=== PATIENT | male | born 1945 | race Caucasian/White ===

== ENCOUNTER 2017-01-03 20:32 | Emergency (ER) | payer BC, MEDICARE, OTHER ==
[~2017-01-03 20:32] MED LIST: CEFT5 PO; GLUCOPHAGE1000 MG PO; JANUVIA100 MG PO; PROBIOTIC PO; SAW PALMETT2 PO; VITAMIN D1000 UNI1 PO; VITAMIN D31000 UNIT PO; ZINC PO; ZOCOR40 PO
[2017-01-03 21:14] LABS: BASOPHILS 0.3 %; BASOPHILS ABSOLUTE 0.03 10/3/uL (0.0-0.16); EOSINOPHILS 2.2 %; EOSINOPHILS ABSOLUTE 0.19 10/3/uL (0.0-0.53); HEMOGLOBIN 14.3 g/dL (13.6-17.8); IMMATURE GRANULOCYTES 0.6 %; IMMATURE GRANULOCYTES ABSOLUTE 0.05 10/3/uL (0.0-0.11); LYMPHOCYTES 37.8 %; LYMPHOCYTES ABSOLUTE 3.24 10/3/uL (0.67-4.30); MEAN CORPUS HGB CONC 35.5 g/dL (32.0-36.0); MEAN CORPUSCULAR HEMOGLOB 31.6 pg (26.0-34.0); MEAN CORPUSCULAR VOLUME 89.2 fL (80-100); MEAN PLATELET VOLUME 8.8 fL (9.2-13.0); MONOCYTES 7.2 %; MONOCYTES ABSOLUTE 0.62 10/3/uL (0.21-1.20); NEUTROPHILS 51.9 %; NEUTROPHILS ABSOLUTE 4.45 10/3/uL (2.02-8.40); RBC DISTRIBUTION WIDTH 12.8 % (12.0-16.0); RED CELL COUNT 4.52 10/6/uL (4.7-6.1); WHITE BLOOD CELLS 8.6 10/3/uL (4.5-10.5)
[2017-01-03 21:15] LABS: HEMATOCRIT 40.3 % (40.0-51.0); MANUAL DIFF NO %; PLATELET COUNT 452 10/3/uL (150-400)
[2017-01-03 21:35] LABS: A/G RATIO 0.9 (0.7-1.9); ALBUMIN 3.6 G/DL (3.5-5.0); ALKALINE PHOSPHATASE 97 U/L (45-117); BUN (BLOOD UREA NITROGEN) 20 MG/DL (6-23); CALCIUM, SERUM 9.1 MG/DL (8.5-10.4); CHLORIDE, SERUM 106 MMOL/L (96-112); CO2 (CARBON DIOXIDE) 26 MMOL/L (24-34); GFR AFRICAN AMERICAN 86 ML/MIN (>=60); GFR NON AFRICAN AMERICAN 74 ML/MIN (>=60); GLUCOSE, SERUM 131 MG/DL (60-99); POTASSIUM, SERUM 3.9 MMOL/L (3.5-5.3); SGOT(AST) 21 U/L (5-40); SGPT(ALT) 43 U/L (5-65); SODIUM, SERUM 138 MMOL/L (135-148); TOTAL BILIRUBIN 0.3 MG/DL (0-1.2); TOTAL PROTEIN 7.6 G/DL (6.0-8.5)
== END 2017-01-03 21:39 | disposition home or self-care (01) ==
LOC: ER 20:32
PROVIDERS: Nurse Practitioner Acute Care
DX: L27.0 Generalized skin eruption due to drugs and medicaments taken internally (principal); T36.1X5A Adverse effect of cephalosporins and other beta-lactam antibiotics, initial encounter; E11.9 Type 2 diabetes mellitus without complications; Z85.46 Personal history of malignant neoplasm of prostate; Z88.2 Allergy status to sulfonamides; Z79.84 Long term (current) use of oral hypoglycemic drugs; Z79.899 Other long term (current) drug therapy
CPT/HCPCS: 80053; 85025; 96372; 99284; A9270-GY; J2930